=== PATIENT | female | born 2000 | race Caucasian/White ===

== ENCOUNTER 2019-06-17 19:40 | Emergency (ER) | payer MEDICAID ==
[~2019-06-17] VITALS: Ht 157.5 cm; Wt 74.8 kg
[2019-06-17 19:57] VITALS: BP 133/89; Ht 157.5 cm; Wt 74.8 kg
[2019-06-17 20:28] LABS: BASOPHIL % 0.3 % (0-2); PLATELET COUNT 257 x10^3mcL (130-400); RED CELL DISTRIBUTION WIDTH 12.9 % (11.5-14.5)
== END 2019-06-17 21:24 | disposition home or self-care (01) ==
LOC: ED 19:40
DX: N92.0 Excessive and frequent menstruation with regular cycle (principal)
CPT/HCPCS: 36415